=== PATIENT | female | born 1975 | race Hispanic/Latino ===

== ENCOUNTER 2016-09-12 18:40 | Emergency (ER) | payer OTHER ==
[~2016-09-12] VITALS: Ht 147.3 cm; Wt 86.2 kg
[~2016-09-12 18:40] MED LIST: BACTRIM DS 8001 TAB PO; DIFLUCAN150 MG PO; MOTRIN 600 MG600 MG PO; PYRIDIUM100 MG PO; PYRIDIUM200 MG PO; VIBRAMYCIN 100100 M1 PO
[2016-09-12 18:47] VITALS: BP 151/93
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
[2016-09-12] MEDS ORDERED: CYCLOBENZAPRINE5 M2 PO (20:00)
[2016-09-12] MEDS ORDERED: IBUPROFEN800 M1 PO (20:00)
== END 2016-09-12 20:08 ==
LOC: ERH 18:40
DX: S16.1XXA Strain of muscle, fascia and tendon at neck level, initial encounter (principal); S39.012A Strain of muscle, fascia and tendon of lower back, initial encounter; V49.40XA Driver injured in collision with unspecified motor vehicles in traffic accident, initial encounter

== ENCOUNTER 2017-02-23 18:00 | Emergency (ER) | payer OTHER ==
[~2017-02-23 18:00] MED LIST changes: +CYCLOBENZAPRINE5 M2 PO; +IBUPROFEN800 M1 PO
[2017-02-23 18:14] VITALS: BP 138/87
--- NOTE | 2017-02-23 18:47 | ED INFLUENZA/URI COMPLAINT ---
History of Present Illness General Chief Complaint: Upper Respiratory Sx/Fever Stated Complaint: COUGH Source: patient Exam Limitations: no limitations, language barrier (yoruba) Vital Signs & Intake/Output Vital Signs & Intake/Output Vital Signs Date Time Temp Pulse Resp B/P B/P Pulse O2 O2 Flow FiO2 Mean Ox Delivery Rate 02/23 1814 98.4 77 16 138/87 98 Room Air Allergies Coded Allergies: NO KNOWN ALLERGIES (03/10/14) Reconcile Medications Azithromycin (Zithromax) 250 MG TABLET 1 DP PO AD URI 2 the first day followed by 1 for days 2-5 Benzonatate 200 MG CAPSULE 1 CAP PO TIDPRN PRN cough Cyclobenzaprine HCl 5 MG TABLET 1 TAB PO TIDPRN PRN pain Doxycycline (Vibramycin) 100 MG CAPSULE 1 CAP PO BID DYSURIA Fluconazole (Diflucan) 150 MG TABLET 1 TAB PO QWEEEK VAGINAL YEAST INFECTION TAKE ONE PILL TODAY...REPEAT IN ONE WEEK. Ibuprofen 800 MG TABLET 1 TAB PO TID PRN pain Ibuprofen (Motrin 600 MG Tab) 600 MG TABLET 1 TAB PO Q6-PRN PRN PAIN PHENAZOPYRIDINE HCL (Pyridium) 100 MG TABLET 1 TAB PO TID PRN PAINFUL URINATION Phenazopyridine Hydrochlorid2 (Pyridium) 200 MG TAB 1 TAB PO TID DYSURIA Sulfamethoxazole/Trimethopri (Bactrim Ds 800 MG-160 MG) 1 TAB TAB 1 TAB PO BID URINE INFECTION Triage Note: TRIAGE: PT TO ED WITH C/O SORE THROAT AND DRY NONPRODUCTIVE COUGH X2 WEEKS. DENIES FEVERS. AFEBRILE IN TRIAGE. STREP SWABS OBTAINED AND SENT FROM TRIAGE Triage Nurses Notes Reviewed? yes Onset: Abrupt Duration: week(s): (1), constant, continues in ED Timing: single episode today Severity: mild, moderate Severity Numbers: 5 Prior Episodes/Possible Cause: no prior episodes No Modifying Factors: none LMP (ages 10-50): unknown : No Patient currently breastfeeds: No HPI: 41-year-old female with no past medical history presents complaining of cough for the past week. Patient reports that the cough is mostly dry but occasionally will be productive of clear sputum. The cough is worse at night causing trouble sleeping. She should report some associated chest discomfort when coughing only. No shortness of breath. She does not smoke. No sick contacts or hemoptysis. She has not taken any medications for these symptoms. She also reports some associated nasal congestion and rhinorrhea. No fevers, sore throat, ear pain, recent travel, recent trauma, or any other associated symptoms. (EMIR OTT PA-C) Past History Travel History Traveled to [place] past 21 day No Medical History Any Pertinent Medical History? 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 No (EMIR OTT PA-C) Review of Systems Review of Systems Constitutional: Reports: no symptoms. EENTM: Reports: see HPI, nasal congestion. Respiratory: Reports: see HPI, cough. Cardiovascular: Reports: no symptoms. GI: Reports: no symptoms. Genitourinary: Reports: no symptoms. Musculoskeletal: Reports: no symptoms. Skin: Reports: no symptoms. Neurological/Psychological: Reports: no symptoms. Hematologic/Endocrine: Reports: no symptoms. Immunologic/Allergic: Reports: no symptoms. All Other Systems: Reviewed and Negative (EMIR OTT PA-C) Physical Exam Physical Exam General Appearance: well developed/nourished, no apparent distress, alert, awake , comfortable Head: atraumatic, normal appearance Eyes: Bilateral: normal appearance, PERRL, EOMI. Ears, Nose, Throat: normal ENT inspection, moist mucous membrane, hearing grossly normal, Tympanic normal, pharynx normal, nasal congestion, nasal drainage (clear) Neck: normal inspection, supple, full range of motion, no midline tenderness Respiratory: normal breath sounds, chest non-tender, no respiratory distress, lungs clear Cardiovascular: regular rate/rhythm, normal peripheral pulses Peripheral Pulses: 2+ tibialis posterior (R), 2+ tibialis posterior (L), 2+ dorsalis pedis (R), 2+ dorsalis pedis (L) Gastrointestinal: normal bowel sounds, soft, non-tender, no organomegaly Back: normal inspection, normal range of motion, no vertebral tenderness Extremities: normal inspection, normal capillary refill, normal range of motion, no edema Neurologic/Psych: no motor/sensory deficits, awake, alert, oriented x 3, normal gait, normal mood/affect Reflexes: 2+: knee (R), knee (L). Skin: intact, normal color, warm/dry Lymphatic: no anterior cervical deja Core Measures Severe Sepsis Present: No Septic Shock Present: No (EMIR OTT PA-C) Progress Differential Diagnosis: influenza, otitis, pneumonia, pharyngitis, sinusitis, viral URI, acute bronchitis, TB Plan of Care: Orders Procedure Date/time Status THROAT CULTURE W/QUICK STREP 02/23 1811 Active She was interviewed with the video game developer. Rapid strep is negative. Lungs are clear to auscultation bilaterally. Patient is afebrile and nontoxic-appearing. There are currently no signs of bacterial infection on exam. This is likely related to a viral upper respiratory infection or allergic rhinitis. Patient will be treated with Tessalon Perles, Tylenol and Flonase as needed. She'll be given a prescription for Z-All to use only if she develops a fever or symptoms do not improve. Advised her to follow-up with her primary care doctor. Reviewed treatment plan with patient and she agrees with the plan. (TRU PETERSEN,EMIR) Initial ED EKG: none (EMIR OTT PA-C) Departure Departure Disposition: HOME OR SELF CARE Condition: Stable Clinical Impression Primary Impression: Cough Referrals: UNKNOWN (PCP/Family) Additional Instructions: Rest and drink plenty of fluids. Use Tylenol or ibuprofen as needed for pain. Benzonatate can be used every 8 hours as needed for cough. This may cause drowsiness. Use Flonase as needed for congestion. They can follow up with her primary care doctor this coming week. Return to the emergency department with any concerns including fever, coughing up blood, shortness of breath or chest pain. Please go over all results of today's visit with your primary care doctor. Contact your primary care doctor to let them know you were here in the emergency room. There may be nonspecific findings which may not be related to your visit today here in the emergency room but may require further evaluation and chronic monitoring by your primary care doctor. If you had a laceration today the chance of foreign body always remains. You should follow-up with your primary care doctor for recheck in 3-5 days for a wound check. If you had an x-ray done there is a chance that a fracture could have been missed on initial read and you should follow-up with your primary care doctor for repeat x-rays if symptoms persist. If your blood pressure was elevated here in the emergency room please have rechecked by her primary care doctor within the next 48 hours by your primary care doctor. If you were prescribed a narcotic here in the emergency room or any type of controlled substances you're not allowed to drive while taking this medication or operate any type of heavy machinery. Narcotics can make you feel lightheaded dizziness nausea and can cause constipation. You may need to bean picker machine operator a stool softener. Thank you for choosing [facility] emergency room. Please return to the emergency room immediately if you have any other concerns worsening of symptoms. Departure Forms: Customer Survey General Discharge Information Prescriptions: Current Visit Scripts Benzonatate 1 CAP PO TIDPRN PRN cough #21 CAP Azithromycin (Zithromax) 1 DP PO AD #6 TAB 2 the first day followed by 1 for days 2-5 (TRU PETERSEN,EMIR) PA/SCRAP CRUSHER Co-Sign Statement Statement: ED Attending supervision documentation- [] I saw and evaluated the patient. I have also reviewed all the pertinent lab results and diagnostic results. I agree with the findings and the plan of care as documented in the PA's/SCRAP CRUSHER's documentation. [X] I have reviewed the ED Record and agree with the PA's/SCRAP CRUSHER's documentation. [] Additions or exceptions (if any) to the PAs/SCRAP CRUSHER's note and plan are summarized below: [] (AMANDA VILLELA,SARIKA)
[2017-02-23] MEDS ORDERED: ZITHROMAX250 M2 PO (19:06)
[2017-02-23] MEDS ORDERED: BENZONATATE200 M1 PO (19:06)
== END 2017-02-23 19:15 ==
LOC: ERH 18:00
DX: R05 Cough (principal)
CPT/HCPCS: 87147